=== PATIENT | male | born 1975 ===

== ENCOUNTER → 2025-05-02 | Outpatient (CLI) | payer OTHER ==
[2025-05-02 15:07] LABS: Anion Gap 7 mmol/L (3-11); Blood Urea Nitrogen 21 mg/dL (8-24); CHOL/HDL RATIO 6.2; CO2, Blood 25 mmol/L (21-32); Calcium, Blood 8.9 mg/dL (8.5-10.1); Chloride, Blood 109 mmol/L (98-108); Cholesterol 230 mg/dL (50-200); Creatinine, Blood 0.91 mg/dL (0.60-1.20); Glucose, Blood 121 mg/dL (70-99); HDL Cholesterol 37 mg/dL (>39); LDL/HDL RATIO Unable to Calculate; Low Density Lipoprotein Chol Unable to Calculate mg/dL (0-110); Potassium, Blood 3.9 mmol/L (3.5-5.5); Sodium, Blood 137 mmol/L (136-145); Triglycerides 426 mg/dL (30-160); Very Low Density Lipoprot Chol Unable to Calculate mg/dL (6-32)
[2025-05-02 15:20] LABS: LDL Direct Measurement 130 mg/dL (0-130)
== END ==
LOC: LAB 08:51 → LAB SHORT 08:51
PROVIDERS: Family Medicine
DX: E78.2 Mixed hyperlipidemia (principal)
CPT/HCPCS: 80048; 80061; 83721